=== PATIENT | male | born 1960 | race Native Hawaiian/Other Pacific Islander ===

== ENCOUNTER 2023-01-01 15:44 | Outpatient (CLI) | payer OTHER | END 2023-01-01 19:09 | disposition home or self-care (01) | LOC: RAD 15:44 | PROVIDERS: ATTEND Physician Assistant | DX: M54.59 Other low back pain (principal); M25.562 Pain in left knee ==

== ENCOUNTER 2023-07-12 11:07 | Outpatient (CLI) | payer OTHER | END 2023-07-12 19:04 | disposition home or self-care (01) | LOC: RAD 11:07 | PROVIDERS: ATTEND Nurse Practitioner | DX: Z01.818 Encounter for other preprocedural examination (principal); Z13.6 Encounter for screening for cardiovascular disorders ==